=== PATIENT | male | born 2005 | race Asian ===

== ENCOUNTER 2023-05-12 19:11 | Emergency (ER) | payer OTHER ==
[2023-05-12 19:35] LABS: BASOPHILS % (AUTO) 0.3 %; EOSINOPHILS # (AUTO) 0.2 10^3/uL (0.0-0.7); EOSINOPHILS % (AUTO) 3.2 %; HCT - HEMATOCRIT 46.8 % (42.0-52.0); LYMPHOCYTES # (AUTO) 1.9 10^3/uL (1.5-3.5); LYMPHOCYTES % (AUTO) 28.5 %; MEAN CORPUSCULAR HEMOGLOBIN 27.9 pg (27.0-31.0); MEAN CORPUSCULAR HGB CONC 32.1 g/dL (32.0-36.0); MEAN PLATELET VOLUME 9.6 fL (7.4-11.4); MONOCYTES # (AUTO) 0.5 10^3/uL (0.0-1.0); MONOCYTES % (AUTO) 7.5 %; NEUTROPHILS # (AUTO) 3.9 10^3/uL (1.5-6.6); NEUTROPHILS % (AUTO) 60.3 %; PLT - PLATELET COUNT 266 10^3/uL (130-450); RED BLOOD COUNT 5.38 10^6/uL (4.70-6.10); RED CELL DISTRIBUTION WIDTH 12.5 % (12.0-15.0); WHITE BLOOD COUNT 6.5 x10^3/uL (4.8-10.8)
[2023-05-12 19:48] LABS: ALBUMIN 4.5 g/dL (3.2-5.5); ALBUMIN/GLOBULIN RATIO 1.3 (1.0-2.2); BILIRUBIN,TOTAL 0.7 mg/dL (0.2-1.0); CALCIUM 9.1 mg/dL (8.5-10.3); POTASSIUM 3.7 mmol/L (3.5-5.0)
[2023-05-12] MEDS ORDERED: KETOROLAC 30 MG/ML VIAL IVP STA (19:51)
[2023-05-12 19:59] LABS: BILIRUBIN,URINE NEGATIVE (NEGATIVE); GLUCOSE, URINE (UA) NEGATIVE (NEGATIVE); KETONES,URINE (UA) NEGATIVE (NEGATIVE); LEUKOCYTE ESTERASE, URINE NEGATIVE (NEGATIVE); NITRITE,URINE NEGATIVE (NEGATIVE); OCCULT BLOOD,URINE NEGATIVE (NEGATIVE); PROTEIN,URINE NEGATIVE (NEGATIVE); UROBILINOGEN,URINE 0.2 (NORMAL) E.U./dL (NORMAL)
--- NOTE | 2023-05-12 19:59 | ED Physician Documentation ---
History of Present Illness - Stated complaint Stated Complaint: LT FLANK PAIN - Chief complaint Chief Complaint: Abd Pain - Additonal information Additional information: 18-year-old male presents emergency department for evaluation of approximately a week and a half left flank pain. He reports a sharp stabbing pain that he has noticed sometimes when urinating though he does not have any breezy dysuria. He has tried Tylenol without relief of symptoms. He googled his symptoms and became concerned that he could have kidney stones or colon cancer. Has had no fevers or vomiting. No obvious hematuria. No pertinent past surgical history. Takes no prescribed medications. Review of Systems Constitutional: denies: Fever Cardiac: reports: Reviewed and negative Respiratory: reports: Reviewed and negative GI: reports: Abdominal Pain : denies: Dysuria Skin: reports: Reviewed and negative Musculoskeletal: reports: Reviewed and negative PD PAST MEDICAL HISTORY - Present Medications Home Medications: Ambulatory Orders Medication Instructions Recorded Confirmed No Known Home Medications 05/12/23 05/12/23 - Allergies Allergies/Adverse Reactions: Allergies Allergy/AdvReac Type Severity Reaction Status Date / Time No Known Drug Allergies Allergy Verified 05/12/23 19:21 PD ED PE NORMAL - General General: Alert and oriented X 3, No acute distress - HEENT HEENT: Atraumatic, Moist mucous membranes - Neck Neck: Supple, no meningeal sign - Cardiac Cardiac: RRR, No murmur - Respiratory Respiratory: No respiratory distress, Clear bilaterally - Abdomen Abdomen: Normal bowel sounds, Soft. No: Non tender (Mild tenderness with palpation of the left flank and near the CVA region. No swelling. Normal gait. 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 Eye Opening: Spontaneous Motor: Obeys Commands Verbal: Oriented GCS Score: 15 Results - Vitals Vitals: Vital Signs - 24 hr 05/12/23 19:18 Temperature 37 C Heart Rate 81 Respiratory 16 Rate Blood Pressure 136/63 H O2 Saturation 100 Oxygen O2 Source Room air - Labs Labs: Laboratory Tests 05/12/23 05/12/23 05/12/23 19:28 19:30 19:30 WBC 6.5 RBC 5.38 Hgb 15.0 Hct 46.8 MCV 87.0 MCH 27.9 MCHC 32.1 RDW 12.5 Plt Count 266 MPV 9.6 Neut # (Auto) 3.9 Lymph # (Auto) 1.9 Z[place]ata # (Auto) 0.5 Eos # (Auto) 0.2 Baso # (Auto) 0.0 Absolute Nucleated RBC 0.00 Nucleated RBC % 0.0 Sodium 138 Potassium 3.7 Chloride 103 Carbon Dioxide 30 Anion Gap 5.0 L BUN 16 Creatinine 1.0 Estimated GFR (MDRD) 95 Glucose 63 L Calcium 9.1 Total Bilirubin 0.7 AST 28 ALT 30 Alkaline Phosphatase 72 Total Protein 8.0 Albumin 4.5 Globulin 3.5 Albumin/Globulin Ratio 1.3 Lipase 39 Urine Color YELLOW Urine Clarity CLEAR Urine pH 7.0 Ur Specific [place] 1.010 Urine Protein NEGATIVE Urine Glucose (UA) NEGATIVE Urine Ketones NEGATIVE Urine Occult Blood NEGATIVE Urine Nitrite NEGATIVE Urine Bilirubin NEGATIVE Urine Urobilinogen 0.2 (NORMAL) Ur Leukocyte Esterase NEGATIVE Ur Microscopic Review NOT INDICATED Urine Culture Comments NOT INDICATED - Rads (name of study) CT abd Relevant Findings:: Final report received (No renal ureter or bladder calculi. Mild to moderate colonic stool without obstruction.) PD Medical Decision Making - ED course Complexity details: reviewed results, re-evaluated patient, d/w patient ED course: Well-appearing 18-year-old male presents emergency department for evaluation of 10 days acute left flank pain that he described as sharp and stabbing in nature. He sometimes felt was worse when he micturated though he did not have breezy dysuria. He was concerned after doing a Google search that he could have kidney stones or colon cancer. Did obtain a CBC, electrolytes and urinalysis today. Per my interpretation no acute worrisome findings. On exam there was some tenderness elicited with mild palpation over the left flank and CVA region. I did obtain a contrasted CT of the abdomen pelvis which showed no findings of ureter or renal colic. His appendix appeared normal. There was however moderate colonic stool seen on CT scan which could help explain some of his symptoms. It is also possible that he simply has some muscle strain or pull. Patient was given a single dose of Toradol 30 mg IV today in the emergency department on reevaluation was having an improvement in pain. I discussed the CT findings with the patient and made the recommendation for him to use MiraLAX daily at 2-3 watery bowel movements. I also made the recommendation for use of ibuprofen. He is to follow closely with [facility]. The usual emergent return precautions worsening symptoms was discussed. Departure - Departure Disposition: 01 Home, Self Care Clinical Impression: Left flank pain Condition: Stable Record reviewed to determine appropriate education?: Yes Comments: Your labs today in the emergency department were normal. As discussed at the bedside the CT scan did not show anything to suggest kidney ureter or bladder stones. The only finding seen on CT scan that may suggest a cause of your pain is some moderate amount of stool within your colon. This can cause some lower abdominal discomfort similar to your pain. I do recommend that you buy MiraLAX [id number] at the pharmacy and take a dose as directed on the package each day until you have 2 or 3 watery bowel movements. I did give you a dose of medication called Toradol here in the emergency department. This is like ibuprofen in an injectable form. You may also have mild muscle strain or pull. I do recommend that you take ibuprofen 600 mg with food 2-3 times a day and follow-up closely with [facility]. Return to the ER if you have any sudden severe abdominal pain, uncontrolled vomiting, fevers, black or bloody stools.
[2023-05-12 20:01] LABS: CLARITY,URINE CLEAR (CLEAR)
[2023-05-12] MEDS ORDERED: iohexoL-300 100 ML VIAL ONE (20:29)
[2023-05-12] MEDS ORDERED: iohexoL-300 100 ML VIAL IVP ONE (20:44)
--- NOTE | 2023-05-12 21:18 | CT Report ---
PROCEDURE: ABDOMEN/PELVIS W INDICATIONS: left flank pain; ? ureter colic CONTRAST: 100mL Omni 300 TECHNIQUE: After the administration of contrast, 5 mm thick sections acquired from the diaphragms to the symphys is. 5 mm thick coronal and sagittal reformats were acquired. For radiation dose reduction, the foll owing was used: automated exposure control, adjustment of mA and/or kV according to patient size. COMPARISON: FINDINGS: Image quality: Excellent. Lung bases and heart: Unremarkable. Liver: No solid mass. Gallbladder and biliary tree: Contracted but grossly unremarkable. Spleen: No splenomegaly. Pancreas: No pancreatic ductal dilation. Adrenals: No adrenal nodule. Kidneys and ureters: No hydronephrosis. No renal cystic lesion which requires follow up. No solid mas s. Bowel and peritoneum: No bowel distension. No pathologic free fluid. Appendix is normal. Mild to mode rate colonic stool without obstruction. Lymph nodes: No central or retroperitoneal adenopathy. Vessels: No infrarenal aortic aneurysm. PELVIS Reproductive organs: Unremarkable. Bladder: No abnormal wall thickening, accounting for underdistension. Pelvic lymph nodes: No pelvic adenopathy by size criteria. Bones: No aggressive osseous abnormality. Other: No significant ventral or inguinal hernia. IMPRESSION: No renal, ureteral or bladder calculi. Reviewed by: Marcelina Jha MD on 05/12/2023 9:17 PM PDT Approved by: Marcelina Jha MD on 05/12/2023 9:17 PM PDT Station ID: [id number]
[2023-05-12 21:41] VITALS: BP 134/71
== END 2023-05-12 21:38 | disposition home or self-care (01) ==
LOC: ED 19:11
DX: R10.9 Unspecified abdominal pain (principal)
CPT/HCPCS: 36415; 74177; 80053; 81003; 83690; 85025; 96374; 99283; 99284; Q9967; 81001; 87086

== ENCOUNTER 2023-05-21 23:24 | Emergency (ER) | payer OTHER ==
[2023-05-22] MEDS ORDERED: BENZONATATE 100 MG CAPSULE PO STA (01:11)
[2023-05-22] MEDS ORDERED: IBUPROFEN 400 MG TABLET PO STA (01:11)
[2023-05-22 01:49] LABS: BASOPHILS % (AUTO) 0.4 %; EOSINOPHILS # (AUTO) 0.6 10^3/uL (0.0-0.7); HCT - HEMATOCRIT 45.2 % (42.0-52.0); HGB - HEMOGLOBIN 14.7 g/dL (14.0-18.0); LYMPHOCYTES % (AUTO) 25.9 %; MEAN CORPUSCULAR HEMOGLOBIN 28.6 pg (27.0-31.0); MEAN CORPUSCULAR HGB CONC 32.5 g/dL (32.0-36.0); MEAN CORPUSCULAR VOLUME 87.9 fL (80.0-94.0); MEAN PLATELET VOLUME 9.8 fL (7.4-11.4); MONOCYTES # (AUTO) 0.6 10^3/uL (0.0-1.0); MONOCYTES % (AUTO) 7.4 %; NEUTROPHILS # (AUTO) 4.5 10^3/uL (1.5-6.6); NEUTROPHILS % (AUTO) 58.2 %; PLT - PLATELET COUNT 248 10^3/uL (130-450); RED BLOOD COUNT 5.14 10^6/uL (4.70-6.10); RED CELL DISTRIBUTION WIDTH 12.3 % (12.0-15.0); WHITE BLOOD COUNT 7.7 x10^3/uL (4.8-10.8)
[2023-05-22 02:03] LABS: ALBUMIN/GLOBULIN RATIO 1.1 (1.0-2.2); BILIRUBIN,TOTAL 0.5 mg/dL (0.2-1.0); CALCIUM 9.3 mg/dL (8.5-10.3); POTASSIUM 3.8 mmol/L (3.5-5.0); TOTAL PROTEIN 7.6 g/dL (6.7-8.2)
--- NOTE | 2023-05-22 02:18 | ED Physician Documentation ---
History of Present Illness - Stated complaint Stated Complaint: ABD PX - Chief complaint Chief Complaint: Resp - Additonal information Additional information: Patient 18-year-old male presenting to the emergency department with cough and body ache. Symptoms ongoing x2 days. States has not taken anything to help with his cough. Took a dose of Tylenol yesterday. Tried to take ibuprofen today but found that the medication had . No known sick contacts. Immunizations up-to-date. Review of Systems Constitutional: reports: Myalgias. denies: Fever Eyes: denies: Loss of vision Ears: denies: Loss of hearing Nose: denies: Rhinorrhea / runny nose Throat: denies: Dental pain / toothache Respiratory: reports: Cough GI: denies: Abdominal Pain : denies: Dysuria Skin: denies: Rash Musculoskeletal: denies: Neck pain PD PAST MEDICAL HISTORY - Present Medications Home Medications: Ambulatory Orders Medication Instructions Recorded Confirmed Benzonatate [Tessalon] 200 mg PO TID PRN #30 cap 05/22/23 Ibuprofen [Motrin] 800 mg PO Q8H PRN #30 tablet 05/22/23 - Allergies Allergies/Adverse Reactions: Allergies Allergy/AdvReac Type Severity Reaction Status Date / Time No Known Drug Allergies Allergy Verified 05/12/23 19:21 PD ED PE NORMAL - General General: Alert and oriented X 3 - HEENT HEENT: Atraumatic, PERRL, EOMI, Ears normal, Moist mucous membranes - Neck Neck: Supple, no meningeal sign, No JVD - Cardiac Cardiac: RRR, No murmur - Respiratory Respiratory: No respiratory distress, Clear bilaterally - Abdomen Abdomen: Normal bowel sounds, Non tender - Male Male : Deferred - Rectal Rectal: Deferred - Back Back: No CVA TTP, No spinal TTP - Extremities Extremities: No deformity - Neuro Neuro: Alert and oriented X 3, 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0 BUN 24 H Creatinine 1.0 Estimated GFR (MDRD) 95 Glucose 107 H Calcium 9.3 Total Bilirubin 0.5 AST 29 ALT 31 Alkaline Phosphatase 65 Total Protein 7.6 Albumin 4.0 Globulin 3.6 Albumin/Globulin Ratio 1.1 Lipase 48 PD Medical Decision Making - ED course Complexity details: reviewed results, d/w patient ED course: Patient presents to the emergency department with cough and reported abdominal pain. He endorsed for generalized pain on my evaluation without Focal abdominal pain. His abdominal exam was benign. He had clear aeration in all lung joya. Performed in the emergency department today was reassuring. Will discharge with medication for symptomatic management and encourage follow-up with primary care. Departure - Departure Disposition: 01 Home, Self Care Clinical Impression: Myalgia Cough Qualifiers: Cough type: acute Qualified Code(s): R05.1 - Acute cough Prescriptions: Ibuprofen [Motrin] 800 mg PO Q8H PRN #30 tablet PRN Reason: PAIN &/OR FEVER Benzonatate [Tessalon] 200 mg PO TID PRN #30 cap PRN Reason: Cough Comments: Thank you for allowing us to care for you today [facility]. The lab work performed in the emergency department today was very reassuring. I have sent some medications to help with your symptoms including your cough to your preferred pharmacy, [facility] in [place]. Please use these as directed. Please make a follow-up appoint with your primary care doctor. If anytime you develop any new or worsening symptoms please not hesitate to return.
[2023-05-22 02:23] VITALS: BP 128/77
== END 2023-05-22 02:25 | disposition home or self-care (01) ==
LOC: ED 23:24
DX: R05.1 Acute cough (principal); M79.10 Myalgia, unspecified site
CPT/HCPCS: 36415; 80053; 83690; 85025; 99283; A9270

== ENCOUNTER 2023-10-04 23:22 | Emergency (ER) | payer OTHER ==
[2023-10-04 23:29] VITALS: BP 140/90; O2SAT 99
[2023-10-05] MEDS ORDERED: KETOROLAC 60 MG/2 ML VIAL IM STA (00:22)
[2023-10-05] MEDS ORDERED: CYCLOBENZAPRINE 10 MG TABLET PO STA (00:23)
[2023-10-05] MEDS ORDERED: DEXAMETHASONE 10 MG/ML VIAL IM STA (00:23)
--- NOTE | 2023-10-05 01:10 | XRAY Report ---
PROCEDURE: ThoracoLumbar 2 View INDICATIONS: pain upper lumbar/lower thoracic after injury TECHNIQUE: 2 views acquired of the thoracolumbar spine. COMPARISON: None FINDINGS: Bones: No acute fractures or dislocations. Visualized inferior ribs appear intact. No suspicious b rubina lesions. Soft tissues: No suspicious soft tissue calcifications. IMPRESSION: No visualized acute fracture or dislocation. However, occult injury cannot be excluded. Recommend tonie rt interval imaging follow-up in 7-10 days as clinically indicated for additional evaluation. Reviewed by: Marcelina Jha MD on 10/05/2023 1:09 AM PST Approved by: Marcelina Jha MD on 10/05/2023 1:09 AM PST Station ID: [id number]
--- NOTE | 2023-10-05 01:16 | ED Physician Documentation ---
History of Present Illness - Stated complaint Stated Complaint: LOWER BACK PX - Chief complaint Chief Complaint: Back Pain - History obtained from History obtained from: Patient - Additonal information Additional information: The patient comes to the emergency department chief complaint of low to mid back pain after lifting some heavy chains at work several days ago. He states that he slung them over his shoulders and then straighten up and he began to feel a pain in his right lower back. He states it moved to the midline and then he could feel it on both sides of his spine. He denies any numbness or tingling going down his legs. No leg pain. No loss of bowel or bladder function. He states that over the last several days, he is just developed increasing pain, especially if he sits down. It is a lot better if he is up walking around. No other complaints at this time. No history of back issues. PD PAST MEDICAL HISTORY - Past Medical History Past Medical History: No Cardiovascular: None Respiratory: None Neuro: None Endocrine/Autoimmune: None GI: None : None HEENT: None Psych: None Musculoskeletal: None Derm: None - Past Surgical History Past Surgical History: No - Present Medications Home Medications: Ambulatory Orders Medication Instructions Recorded Confirmed Benzonatate [Tessalon] 200 mg PO TID PRN #30 cap 05/22/23 Ibuprofen [Motrin] 800 mg PO Q8H PRN #30 tablet 05/22/23 Cyclobenzaprine [Flexeril] 10 mg PO TID PRN #20 tablet 10/05/23 predniSONE [Deltasone] 60 mg PO DAILY 5 Days #15 tablet 10/05/23 - Allergies Allergies/Adverse Reactions: Allergies Allergy/AdvReac Type Severity Reaction Status Date / Time No Known Drug Allergies Allergy Verified 10/04/23 23:26 - Social History Does the pt smoke?: No Smoking Status: Never smoker Does the pt drink ETOH?: No Does the pt have substance abuse?: No - Immunizations Immunizations are current?: Yes PD ED PE NORMAL - Vitals Vital signs reviewed: Yes - General General: Alert and oriented X 3, No acute distress, Well developed/nourished, Other (The patient is standing up, pacing around the room but otherwise appears at ease, laughing and 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 in no apparent distress.) - HEENT HEENT: Atraumatic, PERRL, EOMI, Moist mucous membranes - Cardiac Cardiac: RRR, No murmur - Respiratory Respiratory: Clear bilaterally - Abdomen Abdomen: Normal bowel sounds, Soft, Non tender, Non distended - Derm Derm: Warm and dry - Extremities Extremities: No deformity - Neuro Neuro: Alert and oriented X 3 - Psych Psych: Normal mood, Normal affect Results - Vitals Vitals: Vital Signs - 24 hr 10/04/23 23:26 Temperature 36.5 C Heart Rate 67 Respiratory 16 Rate Blood Pressure 140/90 H O2 Saturation 99 Oxygen O2 Source Room air - Rads (name of study) Thoracolumbar spine x-ray series Relevant Findings:: Final report received, See rad report (nad) PD Medical Decision Making - ED course Complexity details: reviewed results, re-evaluated patient, considered differential, d/w patient ED course: The patient was treated symptomatically in the emergency department and worked up with a thoracolumbar x-ray series, which was unremarkable. We have discussed symptomatic management as well as the usual indications for follow-up and return. The patient has no evidence of a serious cause of his back pain, nor of serious complications. Departure - Departure Disposition: 01 Home, Self Care Clinical Impression: Low back strain Qualifiers: Encounter type: initial encounter Qualified Code(s): S39.012A - Strain of muscle, fascia and tendon of lower back, initial encounter Condition: Stable Instructions: ED Sprain Strain Lumbar Prescriptions: predniSONE [Deltasone] 60 mg PO DAILY 5 Days #15 tablet Cyclobenzaprine [Flexeril] 10 mg PO TID PRN #20 tablet PRN Reason: Spasms Comments: Your x-rays look good. There is no evidence of malrotation or fracture. You may take an anti-inflammatory such as ibuprofen to help with the discomfort. Dosing would be 600 mg every 6 hours for this. Prescriptions for steroid and muscle relaxer have also been electronically transmitted to the [facility] pharmacy in [place], your pharmacy of choice on record. Please pick these up later this morning and take them as needed. Most likely, you have some muscle spasm along your spine that is contributing to the pain. Often the sorts of injuries blow over on their own, given a few weeks. However, if you feel that the symptoms are persisting and not improving at all, you should follow-up with your doctor to discuss having an MRI done to look at some of the soft tissue structures of your spine, such as discs and ligaments. Discharge Date/Time: 10/05/23 01:34
== END 2023-10-05 01:34 | disposition home or self-care (01) ==
LOC: ED 23:22
DX: S39.012A Strain of muscle, fascia and tendon of lower back, initial encounter (principal); X50.9XXA Other and unspecified overexertion or strenuous movements or postures, initial encounter; Y99.0 Civilian activity done for income or pay
CPT/HCPCS: 72080; 96372; 99283; A9270

== ENCOUNTER 2023-10-24 19:09 | Emergency (ER) | payer OTHER ==
[2023-10-24 19:21] VITALS: BP 120/85; O2SAT 100
[2023-10-24] MEDS ORDERED: HYDROcod/ACETAM 5/325 MG TABLET PO STA (19:41)
--- NOTE | 2023-10-24 19:49 | ED Physician Documentation ---
History of Present Illness - Stated complaint Stated Complaint: LT SHOULDER PX - Chief complaint Chief Complaint: Trauma Ext - History obtained from History obtained from: Patient - History of Present Illness Timing: Today Pain level max: 8 Pain level now: 8 - Additonal information Additional information: Patient is a 18-year-old male who presents to the emergency department stating that he was in his window tonight when he slipped falling backwards and landed with his left posterior ribs and scapula onto a chair. Occurred about 1 hour prior to arrival. Worse with movement, better with rest. No fevers. No coughing. No neck or back pain. Has not taken anything for pain. Review of Systems Constitutional: denies: Fever, Chills Throat: denies: Sore throat Cardiac: denies: Chest pain / pressure, Palpitations Respiratory: denies: Dyspnea, Cough, Wheezing GI: denies: Vomiting, Diarrhea Skin: denies: Rash Musculoskeletal: denies: Neck pain, Back pain Neurologic: denies: Headache PD PAST MEDICAL HISTORY - Past Medical History Past Medical History: No Cardiovascular: None Respiratory: None Neuro: None Endocrine/Autoimmune: None GI: None : None HEENT: None Psych: None Musculoskeletal: None Derm: None - Past Surgical History Past Surgical History: No - Present Medications Home Medications: Ambulatory Orders Medication Instructions Recorded Confirmed Ibuprofen [Motrin] 800 mg PO Q8H PRN #30 tablet 10/24/23 - Allergies Allergies/Adverse Reactions: Allergies Allergy/AdvReac Type Severity Reaction Status Date / Time No Known Drug Allergies Allergy Verified 10/24/23 19:19 - Social History Does the pt smoke?: No Smoking Status: Never smoker Does the pt drink ETOH?: No Does the pt have substance abuse?: No - Immunizations Immunizations are current?: Yes - POLST Patient has POLST: No PD ED PE NORMAL - Vitals Vital signs reviewed: Yes - General General: Alert and oriented X 3, No acute distress - HEENT HEENT: Moist mucous membranes - Neck Neck: Supple, no meningeal sign - Cardiac Cardiac: RRR, Strong equal pulses - Respiratory Respiratory: No respiratory distress, Clear bilaterally - Abdomen Abdomen: Soft, Non tender, Non distended - Back Back: No CVA TTP, No spinal TTP - Derm Derm: Warm and dry - Extremities Extremities: No edema, Other (Tender to palpation over the left scapula, left posterior ribs approximately 3 through 7. No crepitus. Limited range of motion of the left shoulder secondary to pain in the ribs and scapula. No pain in the glenohumeral joint. No tenderness over the clavicle. 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, No motor deficit, No sensory deficit, Normal speech Eye Opening: Spontaneous Motor: Obeys Commands Verbal: Oriented GCS Score: 15 - Psych Psych: Normal mood, Normal affect Results - Vitals Vitals: Vital Signs - 24 hr 10/24/23 10/24/23 19:14 19:22 Temperature 36.7 C 36.7 C Heart Rate 89 89 Respiratory 16 16 Rate Blood Pressure 120/85 H 120/85 H O2 Saturation 100 100 Oxygen O2 Source Room air - Rads (name of study) CT chest without Relevant Findings:: Final report received, See rad report PD Medical Decision Making - ED course Complexity details: reviewed results, re-evaluated patient, considered differential, d/w patient ED course: No acute findings on CT scan of the chest. No acute rib fractures, pneumothorax, pulmonary contusion. Pain well-controlled. Will prescribe anti- inflammatories for home. [place]. Patient counseled regarding signs and symptoms for which I believe and urgent re-evaluation would be necessary. Patient with good understanding of and agreement to plan and is comfortable going home at this time This document was made in part using voice recognition software. While efforts are made to proofread this document, sound alike and grammatical errors may occur. Departure - Departure Disposition: 01 Home, Self Care Clinical Impression: Contusion of back wall of thorax Qualifiers: Encounter type: initial encounter Thoracic wall location detail: left Qualified Code(s): S20.222A - Contusion of left back wall of thorax, initial encounter Condition: Good Instructions: ED Contusion Rib Follow-Up: your,doctor in 3 days [Other] Prescriptions: Ibuprofen [Motrin] 800 mg PO Q8H PRN #30 tablet PRN Reason: PAIN &/OR FEVER Comments: Your CT scan does not show any acute abnormalities tonight. Please follow-up with your doctor for further care. Please return if you worsen. You appear to have bruised your posterior chest wall and ribs. Your prescription was sent to [facility] in [place] Forms: PCP List, Activity restrictions
--- NOTE | 2023-10-24 22:35 | CT Report ---
PROCEDURE: CHEST WO INDICATIONS: fall, L rib and scapula pain TECHNIQUE: Noncontrast 1mm axial images were acquired from the pulmonary apices to the posterior costophrenic an gles. Axial 5 mm soft tissue kernel reconstructions were performed as well as 8 mm axial MIP and cor onal and sagittal 5 mm reformations. For radiation dose reduction, the following was used: automate d exposure control, adjustment of mA and/or kV according to patient size. COMPARISON: None FINDINGS: Image quality: Excellent. Lungs and pleura: No consolidation. No pleural effusions. No pneumothorax. No suspicious pulmonary n odules which require follow up. Mediastinum: Heart size is normal. No pericardial effusion. No large vessel abnormality. No mediastin al adenopathy by size criteria. Chest wall and lower neck: Thyroid is unremarkable. No axillary or supraclavicular adenopathy by size . Bones: No aggressive osseous abnormality. No acute rib fractures identified. Visualized scapula appea rs intact on the left. Upper Abdomen: Unremarkable. IMPRESSION: CT chest without acute cardiopulmonary abnormalities. No focal airspace disease. No acute osseous abnormalities identified. Specifically, no evidence for rib fractures or scapular fr actures. No acute compression fractures of the imaged spine. Reviewed by: Vasile Encarnacion MD on 10/24/2023 10:34 PM PST Approved by: Vasile Encarnacion MD on 10/24/2023 10:34 PM PST Station ID: [id number]
== END 2023-10-24 22:05 | disposition home or self-care (01) ==
LOC: ED 19:09
DX: S20.222A Contusion of left back wall of thorax, initial encounter (principal); W19.XXXA Unspecified fall, initial encounter
CPT/HCPCS: 99283; 99284

== ENCOUNTER 2023-10-29 17:33 | Emergency (ER) | payer OTHER ==
[2023-10-29 17:47] VITALS: BP 134/77; O2SAT 100
[2023-10-29] MEDS ORDERED: SULFAMETH/TRIMETH DS 800/160 MG TABLET PO STA (17:55)
--- NOTE | 2023-10-29 17:56 | ED Physician Documentation ---
PD HPI SKIN - Stated complaint Stated Complaint: - Chief complaint Chief Complaint: Wound - History obtained from History obtained from: Patient (He noticed a painful lesion in the right inguinal area starting this evening.) PD PAST MEDICAL HISTORY - Past Medical History Cardiovascular: None Respiratory: None Neuro: None Endocrine/Autoimmune: None GI: None : None HEENT: None Psych: None Musculoskeletal: None Derm: None - Past Surgical History Past Surgical History: No - Present Medications Home Medications: Ambulatory Orders Medication Instructions Recorded Confirmed Ibuprofen [Motrin] 800 mg PO Q8H PRN #30 tablet 10/24/23 10/29/23 Sulfamethox/Trimeth 800/160 1 each PO BID #14 tablet 10/29/23 [Bactrim Ds 800/160] - Allergies Allergies/Adverse Reactions: Allergies Allergy/AdvReac Type Severity Reaction Status Date / Time No Known Drug Allergies Allergy Verified 10/24/23 19:19 - Social History Does the pt smoke?: No Smoking Status: Never smoker Does the pt drink ETOH?: No Does the pt have substance abuse?: No - Immunizations Immunizations are current?: Yes - POLST Patient has POLST: No PD ED PE NORMAL - Vitals Vital signs reviewed: Yes - General General: Alert and oriented X 3, No acute distress, Other (Very frequent swear words despite being asked to watch his language) - Derm Derm: Other (Small pointed abscess, very superficial in the right inguinal area without cellulitis.) - Neuro Neuro: Alert and oriented X 3, Normal speech Results - Vitals Vitals: Vital Signs - 24 hr 10/29/23 17:41 Temperature 36.8 C Heart Rate 86 Respiratory 16 Rate Blood Pressure 134/77 H O2 Saturation 100 Oxygen O2 Source Room air Procedures - Abscess I&D (location) Right inguinal Preparation: Alcohol Incision: Needle aspiration, Purulent drainage, Culture obtained Other: Pt tolerated well, Antibiotic prescribed PD Medical Decision Making - ED course ED course: He has a small/superficial right inguinal skin based boil/abscess that was drained with a needle and cultured and he is placed on Bactrim. Departure - Departure Disposition: 01 Home, Self Care Clinical Impression: Abscess Condition: Good Record reviewed to determine appropriate education?: Yes Instructions: ED Abscess IandD Prescriptions: Sulfamethox/Trimeth 800/160 [Bactrim Ds 800/160] 1 each PO BID #14 tablet Comments: We are performing a wound culture, the results should be done in 48-72 hours. If antibiotic change is necessary we will call you. Return if worse in the meantime, especially if you develop increased pain, fevers, cannot keep down the medication. Otherwise follow-up with your physician in approximately 2-3 days. Discharge Date/Time: 10/29/23 18:09
[2023-10-29] MEDS ORDERED: BACITRACIN ZINC OINT 1 PACKET TOP STA (18:03)
--- NOTE | 2023-11-04 23:08 | ED Physician Documentation ---
ED Addendum - Addendum Addendum: 11/04/23 23:07 Culture report was on my desk from daytime team showing wound culture with few gram positive rods that are "diptheroid" in form. This is potentially coryneform bacilli, part of the normal skin eleni. Okay to continue with bactrim. No changes made to antibiotic regimen.
== END 2023-10-29 18:09 | disposition home or self-care (01) ==
LOC: ED 17:33
DX: L02.214 Cutaneous abscess of groin (principal)
CPT/HCPCS: 10160; 87070; 87205; 99283; A9270

== ENCOUNTER 2023-11-13 17:38 | Emergency (ER) | payer OTHER ==
[2023-11-13 17:56] VITALS: BP 126/64; O2SAT 100
== END 2023-11-13 18:32 | disposition left against medical advice (07) ==
LOC: ED 17:38
DX: Z53.21 Procedure and treatment not carried out due to patient leaving prior to being seen by health care provider (principal)